=== PATIENT | male | born 1945 | race Caucasian/White ===

== ENCOUNTER 2019-01-07 15:42 | Outpatient (CLI) | payer MEDICARE, OTHER ==
--- NOTE | 2019-01-08 01:51 | XRAY Report ---
Reason: RT FOOT INJURY Procedure Date: 01/07/2019 Accession Number: [id number] / [id number] Procedure: XRN - Foot 3 View RT CPT Code: FULL RESULT: EXAM: RIGHT FOOT RADIOGRAPHY EXAM DATE: 01/07/2019 04:00 PM. CLINICAL HISTORY: Pain after injury. COMPARISON: None. TECHNIQUE: 3 views. FINDINGS: Bones: Fracture in the proximal metaphysis of the fifth metatarsal. No other acute fracture seen. Joints: No dislocation. Joints are fairly well preserved for age. Soft Tissues: Soft tissue swelling. IMPRESSION: 1. Fracture in the proximal metaphysis of the fifth metatarsal. RADIA
== END 2019-01-07 15:43 | disposition home or self-care (01) ==
LOC: DI.N 15:42
PROVIDERS: ATTEND Specialist
DX: S92.351A Displaced fracture of fifth metatarsal bone, right foot, initial encounter for closed fracture (principal)

== ENCOUNTER 2019-05-08 11:50 | Outpatient (CLI) | payer MEDICARE, OTHER ==
--- NOTE | 2019-05-08 15:26 | XRAY Report ---
Reason: R FOOT PAIN Procedure Date: 05/08/2019 Accession Number: [id number] / [id number] Procedure: XRN - Foot 3 View RT CPT Code: FULL RESULT: EXAM: RIGHT FOOT RADIOGRAPHY EXAM DATE: 05/08/2019 12:01 PM. CLINICAL HISTORY: Right foot pain. COMPARISON: FOOT 3 VIEW RT 01/07/2019 4:03 PM XR FOOT RIGHT AP LATERAL AND OBLIQUE 04/02/2019 8:16 AM. TECHNIQUE: 3 nonweightbearing views. FINDINGS: Bones: There is a transverse fracture of the basal metaphysis of the fifth metatarsal, as seen on the prior exam. Distraction of fracture fragments measures approximately 3.5 mm, unchanged. No definite bridging callus formation. The other visualized bones appear intact. There is a multipartite lateral sesamoid. No bone lesion. Joints: Normal. No subluxations. Soft Tissues: Unremarkable. No focal soft tissue swelling. IMPRESSION: Transverse fracture of the basal metaphysis of the fifth metatarsal. Distraction of fracture fragments appears similar to prior. No definite bridging callus formation visualized. RADIA
== END 2019-05-08 11:51 | disposition home or self-care (01) ==
LOC: DI.N 11:50
PROVIDERS: ATTEND Specialist
DX: S92.351A Displaced fracture of fifth metatarsal bone, right foot, initial encounter for closed fracture (principal)

== ENCOUNTER 2020-01-02 14:25 | Outpatient (CLI) | payer MEDICARE, OTHER ==
--- NOTE | 2020-01-02 23:26 | XRAY Report ---
Reason: R foot 5th Procedure Date: 01/02/2020 Accession Number: [id number] / [id number] Procedure: XRN - Foot 3 View RT CPT Code: Final Report FULL RESULT: EXAM: FRACTURE FOLLOW-UP FOOT RADIOGRAPHY EXAM DATE: 01/02/2020 02:57 PM. CLINICAL HISTORY: R foot 5th. COMPARISON: FOOT 3 VIEW RT 05/08/2019 12:06 PM. TECHNIQUE: 3 views. 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 The margins are corticated. No new fractures are seen. The flexion deformity at the first interphalangeal joint is unchanged. There are no bone lesions. Mild diffuse soft tissue swelling is present. The calcaneal enthesophyte is reidentified. 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 RADIA
== END 2020-01-02 14:26 | disposition home or self-care (01) ==
LOC: DI.N 14:25
PROVIDERS: ATTEND Internal Medicine
DX: S92.351K Displaced fracture of fifth metatarsal bone, right foot, subsequent encounter for fracture with nonunion (principal)

== ENCOUNTER 2021-01-27 13:15 | Outpatient (CLI) | payer MEDICARE, OTHER | END 2021-01-27 13:16 | disposition home or self-care (01) | LOC: RT 13:15 | PROVIDERS: ATTEND Internal Medicine | DX: R06.2 Wheezing (principal); R06.09 Other forms of dyspnea | CPT/HCPCS: 94060; 94729 ==

== ENCOUNTER 2021-03-22 10:54 | Outpatient (CLI) | payer MEDICARE, OTHER ==
[~2021-03-22 10:54] MED LIST: IOVERSOL 320 100 ML VIAL IVP ONE
[2021-03-22] MEDS ORDERED: IOVERSOL 320 100 ML VIAL IVP ONE ×2 (11:52→12:07)
--- NOTE | 2021-03-22 17:01 | CT Report ---
PROCEDURE: CHEST W INDICATIONS: PULMONARY HTN CONTRAST: IV CONTRAST: Optiray 320 ml: 100 PO CONTRAST: *NO PO CONTRAST TECHNIQUE: After the administration of intravenous contrast, 5 mm thick sections acquired from the pulmonary api tim to the posterior costophrenic angles. 7 mm thick coronal MIP reformats were acquired. For radia tion dose reduction, the following was used: automated exposure control, adjustment of mA and/or kV according to patient size. COMPARISON: None. FINDINGS: Image quality: Diagnostic. Lungs and pleura: There is a small right pleural effusion with associated compressive atelectasis in the right lower lobe. Mild dependent atelectasis is also demonstrated in the left lower lobe. There i s a subpleural nodule in the left lower lobe measuring 0.4 cm on series 4 image 212. The trachea and central airways appear patent. No pneumothorax. Mediastinum: Heart size is enlarged. No pericardial effusion. There is moderate coronary arterial v ascular calcification. Mitral annular calcifications and aortic valve calcifications are present. The thoracic aorta is normal in caliber and contour with scattered atherosclerotic vascular calcificatio ns. There is enlargement of the pulmonary arteries, with the main pulmonary artery measuring up to 4. 2 cm suggestive of pulmonary arterial hypertension. No mediastinal or hilar adenopathy by size criter ia. Esophagus is normal in caliber. No hiatal hernia. Bones and chest wall: No suspicious bony lesions. There is an anterior compression deformity of the T6 vertebral body with approximately 50% loss of height determining acuity. No retropulsed fragments in the spinal canal. No axillary or supraclavicular adenopathy by size criteria. The visualized thyr oid demonstrates no nodules. Abdomen: Visualized upper abdominal solid organs appear normal. Upper abdominal bowel loops are nor mal in caliber. IMPRESSION: 1. Enlargement of the pulmonary arteries compatible with patient's reported history of pulmonary zaid rial hypertension. 2. Small right pleural effusion with associated compressive atelectasis. 3. Small left lower lobe 4 mm pulmonary nodule. Recommend follow-up in 12 months to demonstrate stabi lity if patient is at high risk for malignancy. Reviewed by: Mello Paulino MD on 03/22/2021 4:59 PM PDT Approved by: Mello Paulino MD on 03/22/2021 4:59 PM PDT Station ID: [id number]
== END 2021-03-22 10:55 | disposition home or self-care (01) ==
LOC: DI 10:54
PROVIDERS: ATTEND Internal Medicine
DX: I27.20 Pulmonary hypertension, unspecified (principal); J90 Pleural effusion, not elsewhere classified; J98.11 Atelectasis; R91.1 Solitary pulmonary nodule
CPT/HCPCS: 71260; Q9967

== ENCOUNTER 2022-07-05 12:44 | Outpatient (CLI) | payer MEDICARE, OTHER ==
--- NOTE | 2022-07-05 23:13 | Ultrasound Report ---
PROCEDURE: Duplex Lwr Ext Arterial Bilat INDICATIONS: PVD TECHNIQUE: Color and pulse Doppler interrogation was performed of both lower extremity arterial systems, with im age documentation. COMPARISON: None FINDINGS: Right lower extremity: Common femoral artery: 78 cm/sec, with triphasic flow. Deep femoral artery: 46 cm/sec, with triphasic flow. Proximal superficial femoral artery: 62 cm/sec, with triphasic flow. Mid superficial femoral artery: 55 cm/sec, with triphasic flow. Distal superficial femoral artery: 47 cm/sec, with triphasic flow. Popliteal artery: 33 cm/sec, with triphasic flow. Posterior tibial artery: 59 cm/sec, with triphasic flow. Anterior tibial artery/dorsalis pedis: 76/64 cm/sec, with triphasic flow. Banda-scale imaging description: Mild plaque Left lower extremity: Common femoral artery: 49 cm/sec, with triphasic flow. Deep femoral artery: 38 cm/sec, with triphasic flow. Proximal superficial femoral artery: 66 cm/sec, with triphasic flow. Mid superficial femoral artery: 66 cm/sec, with triphasic flow. Distal superficial femoral artery: 51 cm/sec, with triphasic flow. Popliteal artery: 45 cm/sec, with triphasic flow. Posterior tibial artery: 83 cm/sec, with triphasic flow. Anterior tibial artery/dorsalis pedis: 77/105 cm/sec, with triphasic flow. Banda-scale imaging description: Mild plaque IMPRESSION: Mild plaque bilaterally with no significant stenosis. Reviewed by: Drew Bates on 07/05/2022 11:12 PM PDT Approved by: Drew Bates on 07/05/2022 11:12 PM PDT Station ID: [id number]
== END 2022-07-05 12:45 | disposition home or self-care (01) ==
LOC: DI 12:44
PROVIDERS: ATTEND Nurse Practitioner
DX: L97.922 Non-pressure chronic ulcer of unspecified part of left lower leg with fat layer exposed (principal); E11.9 Type 2 diabetes mellitus without complications; I70.203 Unspecified atherosclerosis of native arteries of extremities, bilateral legs
CPT/HCPCS: 93925

== ENCOUNTER 2022-10-07 13:34 | Outpatient (CLI) | payer MEDICARE, OTHER ==
--- NOTE | 2022-10-07 14:09 | XRAY Report ---
PROCEDURE: Chest 2 View X-Ray INDICATIONS: DYSPNEA,COUGH TECHNIQUE: 2 views of the chest were acquired. COMPARISON: 07/14/2022 FINDINGS: Surgical changes and devices: None. Lungs and pleura: No pleural effusions or pneumothorax. Small right pleural effusion, as before. Rig ht greater than left bibasilar airspace opacity. Mediastinum: Mediastinal contours are normal. Heart size is normal. Bones and chest wall: No suspicious bony abnormalities. Soft tissues appear unremarkable. IMPRESSION: 1. Bibasilar pneumonia. Follow-up PA and lateral chest x-rays or chest CT is recommended to ensure re solution, and to exclude underlying neoplasm. 2. Right pleural effusion. Reviewed by: Usha Perez MD on 10/07/2022 1:08 PM [facility] Approved by: Usha Perez MD on 10/07/2022 1:08 PM [facility] Station ID: [id number]
== END 2022-10-07 13:35 | disposition home or self-care (01) ==
LOC: DI 13:34
PROVIDERS: ATTEND Internal Medicine
DX: J18.9 Pneumonia, unspecified organism (principal); J90 Pleural effusion, not elsewhere classified

== ENCOUNTER 2023-06-18 09:57 | Outpatient (CLI) | payer MEDICARE, OTHER ==
--- NOTE | 2023-06-18 15:36 | CT Report ---
PROCEDURE: ABDOMEN/PELVIS W INDICATIONS: RLQ PAIN CONTRAST: 100ml omni 300 TECHNIQUE: After the administration of oral and intravenous contrast, 5 mm thick sections acquired from the diap hragms to the symphysis. 5 mm thick coronal and sagittal reformats were acquired. For radiation dos e reduction, the following was used: automated exposure control, adjustment of mA and/or kV accordin g to patient size. COMPARISON: CT chest 03/22/2021 FINDINGS: Image quality: Excellent. Lung bases and heart: Small right pleural effusion. Liver: Left hepatic lobe 1.7 cm hypodensity (2/27) with areas of peripheral nodularity, probable james ngioma. Additional punctate hypodensity (2/24) is too to characterize, possible cyst versus hemangiom a. Gallbladder and biliary tree: Unremarkable Spleen: No splenomegaly. Pancreas: No pancreatic ductal dilation. Adrenals: No adrenal nodule. Kidneys and ureters: Enhancing right superior pole mass measuring 4.0 x 4.2 x 3.8 cm (AP by TR by CC, and 03/26). No hydronephrosis. No renal cystic lesion which requires follow up. No solid mass. Bowel and peritoneum: Small hiatal hernia. No bowel obstruction. Diverticulosis without evidence of a cute diverticulitis. Dilated appendix in the right lower quadrant measures up to 10 mm in caliber (2/ 64). There is surrounding fatty stranding and inflammatory changes along the right lateral conal fasc ia. Small fluid collections along the right lateral conal fascia (sagittal image series 5, image 17 a nd axial image series 2, image 60). No free air or pathological fluid. Lymph nodes: No central or retroperitoneal adenopathy. Vessels: No infrarenal aortic aneurysm. Scattered atherosclerotic calcifications of the abdominal aor ta. PELVIS Reproductive organs: Unremarkable. Bladder: The bladder is not distended, limiting the relation. Pelvic lymph nodes: No pelvic adenopathy by size criteria. Bones: No acute or suspicious osseous abnormality.. Other: No significant ventral or inguinal hernia. IMPRESSION: 1. Acute appendicitis with small adjacent fluid collections along the right lateral conal fascia. No evidence of perforation. 2. Right superior pole enhancing solid mass measuring up to 4.0 cm concerning for renal cell carcinom a. Consider urology consultation and/or further evaluation with dedicated renal protocol CT or MRI. 3. Left hepatic lobe hypodensity with peripheral nodular enhancement, probable hemangioma. Additional small hepatic hypodensity is too small to characterize, probable cyst versus hemangioma. 4. Small right pleural effusion. Findings were discussed with provider Dr. Rajesh Eubanks by Dr. Irvin on 06/18/2023 at 3:34 PM. Reviewed by: Angie Irvin MD on 06/18/2023 3:35 PM PDT Approved by: Angie Irvin MD on 06/18/2023 3:35 PM PDT Station ID: [id number]
[2023-06-18] MEDS ORDERED: BARIUM SULFATE 450 ML BOTTLE PO ONE (16:11)
[2023-06-18] MEDS ORDERED: iohexoL-300 100 ML VIAL IVP ONE (16:11)
== END 2023-06-18 09:58 | disposition home or self-care (01) ==
LOC: DI 09:57
PROVIDERS: ATTEND Student in an Organized Health Care Education/Training Program
DX: K35.80 Unspecified acute appendicitis (principal); N28.89 Other specified disorders of kidney and ureter; K76.89 Other specified diseases of liver; J90 Pleural effusion, not elsewhere classified
CPT/HCPCS: 74177; A9270; Q9967

== ENCOUNTER 2023-08-17 10:52 | Outpatient (CLI) | payer MEDICARE, OTHER ==
[2023-08-17] MEDS ORDERED: iohexoL-300 100 ML VIAL IVP ONE (11:48)
--- NOTE | 2023-08-17 12:25 | CT Report ---
PROCEDURE: CHEST W INDICATIONS: LUNG NODULE CONTRAST: 100ml omni 300 TECHNIQUE: After the administration of intravenous contrast, 1 mm axial images were acquired from the pulmonary apices through the posterior costophrenic angles. Axial 5 mm soft tissue kernel reconstructions were performed as well as 8 mm axial MIP and coronal and sagittal 5 mm reformations. For radiation dose reduction, the following was used: automated exposure control, adjustment of mA and/or kV according to patient size. COMPARISON: 03/22/2021 FINDINGS: Image quality: Excellent. Lungs and pleura: No consolidation. Minimal interval increase in a mild to moderate right pleural eff usion with compressive atelectasis in the right lung base.. Pulmonary nodules are as follows: 1. Unchanged 6 mm maximum diameter right lower lobe pulmonary nodule, current image 194/3 and previou s image 189/4. 2. Unchanged subpleural left lower lobe pulmonary nodule, current image 216/3 and previous image 212/ 4. 3. Unchanged 5.5 mm fissural pulmonary nodule, right lung, current image 165/3 and previous image 156 /4. 4. Unchanged 5 mm pulmonary nodule, posterior right upper lobe, current image 79/3 and previous image 77/4. Mediastinum: TAPVR. Heart size is enlarged. Moderate to severe coronary artery calcifications. Reflux into the hepatic veins may indicate the presence of right-sided heart failure. No pericardial effusi on. Thoracic aorta is of normal caliber. The pulmonary arteries are prominent suggesting pulmonary ar terial hypertension. Additionally, there are weblike structures within the right lower lobe pulmonary artery suggesting possible chronic changes from previous pulmonary emboli. No mediastinal adenopathy by size criteria. Chest wall and lower neck: Thyroid is unremarkable. No axillary or supraclavicular adenopathy by size . Bones: No aggressive osseous abnormality. Upper Abdomen: Unremarkable. IMPRESSION: 1.. Pulmonary nodules are unchanged. 2. Cardiomegaly, percutaneous aortic valve, moderate to severe coronary artery calcifications. 3. Slight interval increase in mild to moderate pleural effusion, possibly representing compensated c ongestive heart failure. 4 Findings suggest possible right heart failure. 5. Findings consistent with pulmonary arterial hypertension, question of sequelae of previous pulmona ry emboli. Comment: The pulmonary nodules have been stable x2 years. They are consistent with benign pulmonary n odules. However, if the patient satisfies criteria for inclusion, consider yearly screening lung CT t o begin in12 months. Reviewed by: Mauricio Kumari MD on 08/17/2023 12:24 PM PDT Approved by: Mauricio Kumari MD on 08/17/2023 12:24 PM PDT Station ID: [id number]
== END 2023-08-17 10:53 | disposition home or self-care (01) ==
LOC: DI 10:52
PROVIDERS: ATTEND Urology
DX: R91.8 Other nonspecific abnormal finding of lung field (principal); I51.7 Cardiomegaly; I25.10 Atherosclerotic heart disease of native coronary artery without angina pectoris; J90 Pleural effusion, not elsewhere classified
CPT/HCPCS: 71260; Q9967

== ENCOUNTER 2023-12-24 12:45 | Outpatient (CLI) | payer MEDICARE, OTHER ==
--- NOTE | 2023-12-24 17:15 | Ultrasound Report ---
PROCEDURE: Renal (Retroperitoneal) INDICATIONS: RENAL MASS TECHNIQUE: Real-time scanning was performed of the retroperitoneal organs, with image documentation. COMPARISON: CT abdomen pelvis dated 06/18/2023. FINDINGS: Kidneys: Note is made of a 3.9 x 3.9 x 4.6 cm hyperechoic partially exophytic mass of the right kidney showing some vascularity most probably representing renal cell carcinoma, seen on prior CT from 06/18/2023. N ote is made of a 1.4 cm cyst in the inferior right kidney. A 1.1 cm cyst of the left inferior kidney is also seen. Right kidney measures 12 cm long; left kidney measures 12.6 cm long. Right renal cortical thickness is 1.02 cm; left renal cortical thickness is 0.81 cm. No solid masses, hydronephrosis, or nephrolith iasis. Bladder: Pre-void bladder volume is 131.9 mL. Post-void residual is 0 mL. Pre-void images demonstr ate no intraluminal masses or stones. On pre-void images, bilateral ureteral jets are noted with col or Doppler interrogation. (Of note, ureteral jets may not be detectable in up to 25% of cases due to insufficient differences in specific gravity between ureteral and bladder urine). Prostate measures 4.6 x 5.4 x 5.7 cm. Miscellaneous: No free abdominal fluid. IMPRESSION: 4.6 cm right renal cell carcinoma; recommend urology / oncology consultation Reviewed by: Quoc Rodriguez MD on 12/24/2023 5:13 PM PST Approved by: Quoc Rodriguez MD on 12/24/2023 5:13 PM PST Station ID: [id number]
== END 2023-12-24 12:46 | disposition home or self-care (01) ==
LOC: DI 12:45
PROVIDERS: ATTEND Urology
DX: C64.1 Malignant neoplasm of right kidney, except renal pelvis (principal)